=== PATIENT | male | born 1945 | race Caucasian/White ===

== ENCOUNTER 2017-07-19 14:38 | Emergency (ER) | payer OTHER, BC ==
[~2017-07-19] VITALS: Ht 167.6 cm; Wt 57.6 kg
[2017-07-19 17:11] LABS: CALCIUM 9.2 mg/dL (8.5-10.1); CARBON DIOXIDE 27.4 mmol/L (21-32); CHLORIDE SERUM 102 mmol/L (98-107); CREATININE SERUM 1.5 mg/dL (0.7-1.3); GLUCOSE SERUM 163 mg/dL (74-106); POTASSIUM SERUM 4.5 mmol/L (3.5-5.1); SODIUM SERUM 135 mmol/L (136-145)
[2017-07-19 17:12] LABS: BASOPHIL % 0.5 % (0-2); PLATELET COUNT 354 x10^3mcL (130-400)
[2017-07-19 17:17] LABS: ALKALINE PHOSPHATASE 73 U/L (46-116); ALT/SGPT 10 U/L (16-63); AST/SGOT 14 U/L (15-37); BILIRUBIN TOTAL 0.2 mg/dL (0.20-1.00); RED CELL DISTRIBUTION WIDTH 16.8 % (11.5-14.5); TOTAL PROTEIN, SERUM 6.8 g/dL (6.4-8.2)
[2017-07-19 17:21] LABS: ALBUMIN 3.2 g/dL (3.4-5.0)
[2017-07-19 18:45] VITALS: BP 142/68
== END 2017-07-19 18:45 | disposition short-term general hospital (02) ==
LOC: ED 14:38
PROVIDERS: Emergency Medicine
DX: S72.101A Unspecified trochanteric fracture of right femur, initial encounter for closed fracture (principal); N28.9 Disorder of kidney and ureter, unspecified; N42.9 Disorder of prostate, unspecified; D64.9 Anemia, unspecified; E11.9 Type 2 diabetes mellitus without complications; I10 Essential (primary) hypertension; F17.210 Nicotine dependence, cigarettes, uncomplicated; W18.30XA Fall on same level, unspecified, initial encounter; Y93.89 Activity, other specified; Y92.89 Other specified places as the place of occurrence of the external cause; Y99.8 Other external cause status
CPT/HCPCS: J2270; J2405